=== PATIENT | female | born 1935 | race African-American/Black ===

== ENCOUNTER 2019-07-11 17:16 | Inpatient (IN) ==
[2019-07-11] MEDS ORDERED: Isovue-370 500 ML BOTTLE IVP ONE ×2 (17:41→17:48)
[2019-07-11] MEDS ORDERED: *HR* FentaNYL (PF) 100 MCG/2 ML VIAL IVP ONE (17:41)
[2019-07-11 18:29] LABS: Basophils % 0.3 %; Hematocrit 33.3 % (35.3-44.9); Immature Granulocytes % 0.5 % (0-4); Lymphocytes # 0.5 K/mcL (0.6-4.6); Lymphocytes % 3.3 %; Mean Corpuscular Hemoglobin 31.5 pg (28.0-33.3); Mean Corpuscular Volume 95.4 fL (83.0-100.0); Monocytes # 0.5 K/mcL (0.0-1.3); Monocytes % 3.3 %; Neutrophils # 14.4 K/mcL (1.6-8.9); Platelet Count 386 K/mcL (140-400); Red Blood Count 3.49 M/mcL (3.82-4.97); Red Cell Distribution Width 12.8 % (11.5-14.5); Segmented Neutrophils % 92.6 %; White Blood Count 15.6 K/mcL (4.3-11.1)
[2019-07-11 18:49] LABS: Calcium 8.8 mg/dL (8.6-10.3); Potassium 4.5 mEq/L (3.5-5.1)
[2019-07-11] MEDS ORDERED: Piperacillin/Tazobactam 3.375 GM in Water for inj. (sterile) 20 ML IVP ONE (20:05)
[2019-07-11] MEDS ORDERED: 0.9 % Sodium Chloride 1,000 ML IVC ONE (20:16)
[2019-07-11 20:39] LABS: INR 1.4
[2019-07-11 20:55] LABS: Albumin 3.1 g/dL (3.5-5.7); Albumin/Globulin Ratio 0.9 (1.1-2.2); Bilirubin,Direct 0.4 mg/dL (0.0-0.2); Bilirubin,Indirect 0.4 mg/dL (0.0-1.0); Bilirubin,Total 0.8 mg/dL (0.3-1.0); Globulin 3.6 g/dL (2.4-3.5); Total Protein 6.7 g/dL (6.4-8.9)
[2019-07-11] MEDS ORDERED: Naloxone 0.4 MG/ML INJ IVP PRN (21:46)
[2019-07-11] MEDS ORDERED: Ondansetron 4 MG/2 ML VIAL IVP PRN (22:01)
[2019-07-11] MEDS ORDERED: *HR* Dextrose 50 % in Water (Syg) 50 ML SYRINGE IVP PRN (22:05)
[2019-07-11] MEDS ORDERED: Dextrose Gel 15 GM/37.5 ML TUBE PO PRN ×2 (22:05)
[2019-07-11] MEDS ORDERED: D5% in Water 1,000 ML IVC PRN (22:05)
[2019-07-11] MEDS ORDERED: Ringers Solution, Lactated 1,000 ML IVC SCH (22:15)
[2019-07-11] MEDS ORDERED: Ketorolac 15 MG/ML VIAL IVP PRN (23:31)
[2019-07-11] MEDS ORDERED: 0.9 % Sodium Chloride 1,000 ML IVC SCH (23:45)
[2019-07-12] MEDS: Piperacillin/Tazobactam 3.375 GM in 0.9 % Sodium Chloride Mini Bag 100 ML IVPB SCH ×3 (03:30→20:31)
[2019-07-12 04:21] LABS: Bilirubin,Urine Small (Negative); Blood,Urine Negative (Negative); Clarity,Urine Clear (Clear); Color,Urine Dark Yellow (Yellow); Glucose,Urine (UA) Normal (Normal); Ketones,Urine Negative (Negative); Leukocyte Esterase,Urine Moderate (Negative); Nitrite,Urine Negative (Negative); PH,Urine 5.5 pH Units (5.0-8.0); Protein,Urine 30 mg/dL (Neg-Trace); Specific Gravity,Urine > 1.030 (1.010-1.025)
[2019-07-12 04:24] LABS: Bacteria,Urine None Seen per hpf (None-Few); Hyaline Casts,Urine None Seen per lpf (None-Few); RBC,Urine 0-3 per hpf (0-3); Squamous Epithelial Cell,Urine Many per lpf (None-Few); WBC,Urine 15-30 per hpf (0-3)
[2019-07-12] MEDS: Insulin LISPRO 300 UNITS/3 ML VIAL SQ SCH ×4 (05:41→17:08)
[2019-07-12 06:21] LABS: Basophils % 0.2 %; Hematocrit 30.9 % (35.3-44.9); Hemoglobin 9.7 g/dL (11.5-15.4); Immature Granulocytes % 0.9 % (0-4); Lymphocytes # 0.7 K/mcL (0.6-4.6); Mean Corpuscular HGB Conc 31.4 g/dL (31.6-35.5); Mean Corpuscular Volume 98.7 fL (83.0-100.0); Mean Platelet Volume 9.1 fL (9.4-12.4); Monocytes # 0.9 K/mcL (0.0-1.3); Monocytes % 4.3 %; Platelet Count 354 K/mcL (140-400); Red Blood Count 3.13 M/mcL (3.82-4.97); Red Cell Distribution Width 12.9 % (11.5-14.5); Segmented Neutrophils % 91.6 %; White Blood Count 21.8 K/mcL (4.3-11.1)
[2019-07-12 06:43] LABS: Platelet Estimate Normal (Normal)
[2019-07-12 06:44] LABS: Albumin 2.8 g/dL (3.5-5.7); Bilirubin,Total 0.9 mg/dL (0.3-1.0); Globulin 2.9 g/dL (2.4-3.5); Potassium 4.8 mEq/L (3.5-5.1); Total Protein 5.7 g/dL (6.4-8.9)
[2019-07-12] MEDS ORDERED: CefOXitin 1,000 MG VIAL ONE ×2 (11:22→11:58)
[2019-07-12] MEDS ORDERED: *HR* FentaNYL (PF) 100 MCG/2 ML VIAL ONE ×2 (11:23→12:30)
[2019-07-12] MEDS ORDERED: Lidocaine -MPF 2% 2 ML VIAL ONE ×2 (11:23→12:07)
[2019-07-12] MEDS ORDERED: *HR* Propofol 200 MG/20 ML VIAL IVP ONE (11:23)
[2019-07-12] MEDS ORDERED: Lidocaine HCL 4 ML Topical Solution (Laryng-O-Jet Kit Sterile Pak) TP ONE (11:23)
[2019-07-12] MEDS ORDERED: Ondansetron 4 MG/2 ML VIAL ONE (11:23)
[2019-07-12] MEDS ORDERED: Dexamethasone 4 MG/ML VIAL ONE (11:23)
[2019-07-12] MEDS ORDERED: *HR* Midazolam HCl 2 MG/2 ML VIAL ONE (11:23)
[2019-07-12] MEDS ORDERED: *HR* Etomidate 40 MG/20 ML VIAL IVP ONE (11:23)
[2019-07-12] MEDS ORDERED: *HR* Rocuronium Bromide 50 MG/5 ML VIAL ONE (11:23)
[2019-07-12] MEDS ORDERED: Heparin 1,000 UNITS/500 mL 500 ML ONE (11:24)
[2019-07-12] MEDS ORDERED: EPHEDrine 50 MG/ML VIAL ONE (11:25)
[2019-07-12] MEDS ORDERED: *HR* PHENYLEPHRINE 1,000 MCG/10 ML SYRINGE IVP ONE (11:54)
[2019-07-12] MEDS ORDERED: Esmolol 100 MG/10 ML VIAL IVP ONE (12:13)
[2019-07-12] MEDS ORDERED: cefOXitin 1,000 MG in Water for inj. (sterile) 10 ML IVP ONE (12:32)
[2019-07-12] MEDS ORDERED: *HR* HYDROMORPHONE 2 MG/ML VIAL ONE (14:10)
[2019-07-12] MEDS ORDERED: Naloxone 0.4 MG/ML INJ IVP PRN ×2 (14:35→15:02)
[2019-07-12] MEDS ORDERED: Ondansetron 4 MG/2 ML VIAL IVP PRN (14:35)
[2019-07-12] MEDS ORDERED: Dextrose Gel 15 GM/37.5 ML TUBE PO PRN ×2 (14:35)
[2019-07-12] MEDS ORDERED: *HR* Dextrose 50 % in Water (Syg) 50 ML SYRINGE IVP PRN (14:35)
[2019-07-12] MEDS ORDERED: Morphine Sulfate Oral CONC 10 MG/0.5 ML ORAL.SYG SL PRN (14:35)
[2019-07-12] MEDS ORDERED: D5% in Water 1,000 ML IVC PRN (14:35)
[2019-07-12] MEDS ORDERED: Ketorolac 15 MG/ML VIAL IVP PRN (14:35)
[2019-07-12] MEDS ORDERED: Ringers Solution, Lactated 1,000 ML ONE (14:48)
[2019-07-12] MEDS ORDERED: *HR* Promethazine 25 MG/ML VIAL IVP PRN (15:02)
[2019-07-12] MEDS ORDERED: *HR* OxyCODONE Immed Rel 5 MG TABLET PO PRN (15:02)
[2019-07-12] MEDS ORDERED: *HR* Labetalol 20 MG/4 ML SYRINGE IVP PRN (15:02)
[2019-07-12] MEDS ORDERED: Ondansetron 4 MG/2 ML VIAL IVP ONE (15:02)
[2019-07-12 15:08] LABS: ABG Base Excess -4 mEq/L (-2 to 3); ABG HCO3 22 mEq/L (21-27); ABG Oxygen Saturation 83 % (95-98); ABG PCO2 45 mmHg (35-45); ABG PO2 53 mmHg (85-104); ABG TCO2 24 mEq/L (20-26)
[2019-07-12] MEDS: *HR* HYDROmorphone (PF) 1 MG/ML SYRINGE IVP PRN ×3 (15:18→15:41)
[2019-07-12] MEDS ORDERED: *HR* FentaNYL (PF) 100 MCG/2 ML VIAL IVP PRN (16:43)
[2019-07-12] MEDS: 0.9 % Sodium Chloride 1,000 ML IVC SCH (17:08)
[2019-07-12] MEDS ORDERED: Insulin LISPRO 300 UNITS/3 ML VIAL SQ SCH (18:00)
[2019-07-12 23:21] LABS: Estimated Average Glucose 128 mg/dl
[2019-07-13] MEDS: 0.9 % Sodium Chloride 1,000 ML IVC SCH (03:14)
[2019-07-13] MEDS: Piperacillin/Tazobactam 3.375 GM in 0.9 % Sodium Chloride Mini Bag 100 ML IVPB SCH ×3 (03:14→20:14)
[2019-07-13 04:42] LABS: Hematocrit 27.2 % (35.3-44.9); Hemoglobin 8.6 g/dL (11.5-15.4); Mean Corpuscular HGB Conc 31.6 g/dL (31.6-35.5); Mean Corpuscular Hemoglobin 30.8 pg (28.0-33.3); Mean Corpuscular Volume 97.5 fL (83.0-100.0); Mean Platelet Volume 9.4 fL (9.4-12.4); Platelet Count 316 K/mcL (140-400); Red Blood Count 2.79 M/mcL (3.82-4.97); Red Cell Distribution Width 15.4 % (11.5-14.5); White Blood Count 17.8 K/mcL (4.3-11.1)
[2019-07-13 05:03] LABS: Alanine Aminotransferase 25 Units/L (7-52); Albumin 2.8 g/dL (3.5-5.7); Albumin/Globulin Ratio 1.1 (1.1-2.2); Alkaline Phosphatase 59 Units/L (34-104); Aspartate Amino Transferase 52 Units/L (13-39); BUN/Creatinine Ratio 29 (6-26); Bilirubin,Total 0.9 mg/dL (0.3-1.0); Blood Urea Nitrogen 30 mg/dL (8-23); Calcium 8.3 mg/dL (8.6-10.3); Carbon Dioxide 18 mEq/L (23-29); Chloride 113 mEq/L (98-107); Globulin 2.6 g/dL (2.4-3.5); Glucose 148 mg/dL (70-105); Osmolality,Calculated 299 (280-300); Potassium 5.1 mEq/L (3.5-5.1); Sodium 140 mEq/L (136-145); Total Protein 5.4 g/dL (6.4-8.9); eGFR For African Americans > 60 (> 60); eGFR For Non-African Americans 50 (> 60)
[2019-07-13 05:33] LABS: Lymphocytes # 2.1 K/mcL (0.6-4.6); Monocytes # 0.4 K/mcL (0.0-1.3); Neutrophils # 15.3 K/mcL (1.6-8.9); Platelet Estimate Normal (Normal); Poikilocytosis 1+ (Not Present)
[2019-07-13] MEDS: Insulin LISPRO 300 UNITS/3 ML VIAL SQ SCH ×4 (06:25→17:45)
[2019-07-13] MEDS: Pantoprazole 40 MG VIAL IVP SCH (08:07)
[2019-07-13] MEDS ORDERED: Loratadine 10 MG TABLET PO PRN (09:04)
[2019-07-13] MEDS ORDERED: Perflutren Lipid Microsphere 1.3 ML in 0.9 % Sodium Chloride 8.7 ML IVP ONE (13:48)
[2019-07-13] MEDS: *HR* Heparin 5,000 UNIT/ML VIAL SQ SCH (17:45)
[2019-07-14] MEDS: Insulin LISPRO 300 UNITS/3 ML VIAL SQ SCH ×5 (00:12→21:15)
[2019-07-14] MEDS ORDERED: Ketorolac 15 MG/ML VIAL IVP ONE (01:14)
[2019-07-14] MEDS: *HR* Heparin 5,000 UNIT/ML VIAL SQ SCH ×2 (04:11→17:53)
[2019-07-14] MEDS: Piperacillin/Tazobactam 3.375 GM in 0.9 % Sodium Chloride Mini Bag 100 ML IVPB SCH ×2 (04:11→16:11)
[2019-07-14 05:32] LABS: Basophils % 0.1 %; Eosinophils # 0.1 K/mcL (0.0-0.6); Eosinophils % 0.3 %; Hematocrit 27.7 % (35.3-44.9); Immature Granulocytes % 1.2 % (0-4); Lymphocytes # 1.1 K/mcL (0.6-4.6); Lymphocytes % 5.2 %; Mean Corpuscular HGB Conc 32.5 g/dL (31.6-35.5); Mean Corpuscular Hemoglobin 30.7 pg (28.0-33.3); Mean Corpuscular Volume 94.5 fL (83.0-100.0); Monocytes % 4.7 %; Platelet Count 382 K/mcL (140-400); Red Blood Count 2.93 M/mcL (3.82-4.97); Red Cell Distribution Width 14.6 % (11.5-14.5); Segmented Neutrophils % 88.5 %; White Blood Count 20.3 K/mcL (4.3-11.1)
[2019-07-14 05:49] LABS: Albumin 2.7 g/dL (3.5-5.7); Albumin/Globulin Ratio 0.9 (1.1-2.2); Bilirubin,Total 0.7 mg/dL (0.3-1.0); Calcium 8.6 mg/dL (8.6-10.3); Potassium 4.5 mEq/L (3.5-5.1); Total Protein 5.7 g/dL (6.4-8.9)
[2019-07-14] MEDS ORDERED: Meropenem 1,000 MG in Water for inj. (sterile) 20 ML IVP SCH ×2 (08:00→18:00)
[2019-07-14] MEDS: Pantoprazole 40 MG VIAL IVP SCH (08:27)
[2019-07-14] MEDS ORDERED: Fluconazole 400 MG/200 ML 400 MG/200 ML BAG IVPB ONE (09:00)
[2019-07-14] MEDS ORDERED: Lisinopril 20 MG TABLET PO SCH (10:16)
[2019-07-14] MEDS ORDERED: carvediloL 6.25 MG TABLET PO SCH (10:43)
[2019-07-14] MEDS ORDERED: Loratadine 10 MG TABLET PO PRN (11:23)
[2019-07-14] MEDS ORDERED: D5% in Water 1,000 ML IVC PRN (11:23)
[2019-07-14] MEDS ORDERED: *HR* Dextrose 50 % in Water (Syg) 50 ML SYRINGE IVP PRN (11:23)
[2019-07-14] MEDS ORDERED: Naloxone 0.4 MG/ML INJ IVP PRN (11:23)
[2019-07-14] MEDS ORDERED: Dextrose Gel 15 GM/37.5 ML TUBE PO PRN ×2 (11:23)
[2019-07-14] MEDS ORDERED: *HR* Promethazine 25 MG/ML VIAL IVP PRN (11:23)
[2019-07-14] MEDS ORDERED: Ondansetron 4 MG/2 ML VIAL IVP PRN (11:23)
[2019-07-14] MEDS ORDERED: Insulin LISPRO 300 UNITS/3 ML VIAL SQ SCH ×2 (11:30→21:00)
[2019-07-14] MEDS: carvediloL 6.25 MG TABLET PO SCH (17:53)
[2019-07-15] MEDS: Piperacillin/Tazobactam 3.375 GM in 0.9 % Sodium Chloride Mini Bag 100 ML IVPB SCH ×3 (00:40→15:44)
[2019-07-15] MEDS: *HR* Heparin 5,000 UNIT/ML VIAL SQ SCH ×2 (06:21→17:29)
[2019-07-15] MEDS: Lisinopril 20 MG TABLET PO SCH (08:37)
[2019-07-15] MEDS: carvediloL 6.25 MG TABLET PO SCH ×2 (08:37→17:29)
[2019-07-15] MEDS: Insulin LISPRO 300 UNITS/3 ML VIAL SQ SCH ×4 (08:38→20:34)
[2019-07-15] MEDS: Fluconazole 200 MG/100 ML 200 MG/100 ML BAG IVPB SCH (08:45)
[2019-07-15] MEDS ORDERED: Pantoprazole 40 MG VIAL IVP SCH (09:00)
[2019-07-15] MEDS ORDERED: Fluconazole 200 MG/100 ML 200 MG/100 ML BAG IVPB SCH (09:00)
[2019-07-15 09:24] LABS: Basophils % 0.2 %; Eosinophils # 0.1 K/mcL (0.0-0.6); Eosinophils % 0.9 %; Hematocrit 28.8 % (35.3-44.9); Hemoglobin 9.3 g/dL (11.5-15.4); Immature Granulocytes % 1.1 % (0-4); Lymphocytes # 0.8 K/mcL (0.6-4.6); Lymphocytes % 4.9 %; Mean Corpuscular HGB Conc 32.3 g/dL (31.6-35.5); Mean Corpuscular Hemoglobin 30.9 pg (28.0-33.3); Mean Corpuscular Volume 95.7 fL (83.0-100.0); Monocytes # 0.9 K/mcL (0.0-1.3); Monocytes % 5.8 %; Neutrophils # 13.7 K/mcL (1.6-8.9); Platelet Count 406 K/mcL (140-400); Red Blood Count 3.01 M/mcL (3.82-4.97); Red Cell Distribution Width 14.5 % (11.5-14.5); Segmented Neutrophils % 87.1 %; White Blood Count 15.8 K/mcL (4.3-11.1)
[2019-07-15 09:43] LABS: Albumin 2.8 g/dL (3.5-5.7); Albumin/Globulin Ratio 0.9 (1.1-2.2); Bilirubin,Total 0.6 mg/dL (0.3-1.0); Calcium 8.2 mg/dL (8.6-10.3); Globulin 3.1 g/dL (2.4-3.5); Potassium 4.6 mEq/L (3.5-5.1); Total Protein 5.9 g/dL (6.4-8.9)
[2019-07-16] MEDS: Piperacillin/Tazobactam 3.375 GM in 0.9 % Sodium Chloride Mini Bag 100 ML IVPB SCH ×4 (00:35→23:40)
[2019-07-16 04:57] LABS: Hematocrit 26.6 % (35.3-44.9); Hemoglobin 8.7 g/dL (11.5-15.4); Mean Corpuscular HGB Conc 32.7 g/dL (31.6-35.5); Mean Corpuscular Hemoglobin 30.6 pg (28.0-33.3); Mean Corpuscular Volume 93.7 fL (83.0-100.0); Mean Platelet Volume 9.3 fL (9.4-12.4); Platelet Count 418 K/mcL (140-400); Red Blood Count 2.84 M/mcL (3.82-4.97); Red Cell Distribution Width 14.3 % (11.5-14.5); White Blood Count 12.8 K/mcL (4.3-11.1)
[2019-07-16 05:40] LABS: Blood Urea Nitrogen 27 mg/dL (8-23); Calcium 7.8 mg/dL (8.6-10.3); Chloride 111 mEq/L (98-107); Glucose 227 mg/dL (70-105); Osmolality,Calculated 300 (280-300); Sodium 139 mEq/L (136-145)
[2019-07-16] MEDS: *HR* Heparin 5,000 UNIT/ML VIAL SQ SCH ×2 (05:53→16:34)
[2019-07-16 06:41] LABS: BUN/Creatinine Ratio 26 (6-26); Carbon Dioxide 20 mEq/L (23-29); eGFR For African Americans > 60 (> 60); eGFR For Non-African Americans 51 (> 60)
[2019-07-16] MEDS: carvediloL 6.25 MG TABLET PO SCH ×2 (08:02→16:34)
[2019-07-16] MEDS: Fluconazole 200 MG/100 ML 200 MG/100 ML BAG IVPB SCH (08:02)
[2019-07-16] MEDS: Lisinopril 20 MG TABLET PO SCH (08:02)
[2019-07-16] MEDS: Insulin LISPRO 300 UNITS/3 ML VIAL SQ SCH ×4 (08:04→21:14)
[2019-07-17] MEDS: *HR* Heparin 5,000 UNIT/ML VIAL SQ SCH (06:07)
[2019-07-17] MEDS: Insulin LISPRO 300 UNITS/3 ML VIAL SQ SCH ×2 (07:51→12:00)
[2019-07-17] MEDS: Piperacillin/Tazobactam 3.375 GM in 0.9 % Sodium Chloride Mini Bag 100 ML IVPB SCH (07:56)
[2019-07-17] MEDS: carvediloL 6.25 MG TABLET PO SCH (07:58)
[2019-07-17] MEDS: Fluconazole 200 MG/100 ML 200 MG/100 ML BAG IVPB SCH (07:58)
[2019-07-17] MEDS: Lisinopril 20 MG TABLET PO SCH (07:59)
[2019-07-17 14:48] VITALS: BP 151/74
== END 2019-07-17 17:29 | disposition home health service (06) | DRG 853 ==
LOC: EMEROOARM 17:16 → 3ANU 17:16 → SUATTDRO 23:37 → ICNU 07-12 16:36 → CDU 07-14 12:55 → 3ANU 07-14 18:48
PROVIDERS: ADMIT Internal Medicine; ATTEND Internal Medicine